=== PATIENT | male | born 1945 | race African-American/Black ===

== ENCOUNTER 2021-06-10 17:01 | Inpatient (IN) | payer MEDICARE, OTHER ==
[~2021-06-10] VITALS: Ht 180.3 cm; Wt 87.8 kg
[2021-06-10] MEDS: metroNIDAZOLE 500 MG TABLET PO SCH (00:08)
[2021-06-10] MEDS: HEPARIN 5,000 UNITS/ML, 1ML SQ SCH (00:08)
[2021-06-10] MEDS ORDERED: SODIUM CHLORIDE 0.9% 1,000ML IVBOLUS ONE (17:30)
[2021-06-10] MEDS ORDERED: SODIUM CHLORIDE FLUSH 10ML SYR IVF ONE (17:30)
[2021-06-10] MEDS ORDERED: LEVETIRACETAM 1,000 MG in SODIUM CHLORIDE 0.9% 100 ML IV ONE (17:30)
--- NOTE | 2021-06-10 17:34 | NUR ---
[place] someone there witnessed and called for reported tonic clonic like activity lasting approx 30 seconds. Evidence of oral trauma with dried blood on tongue. No evidence of incontinence. Pt presents oriented to self, states he in the hospital, doesn't know why, believes he's in [place] and did not answer what year. Placed on all monitors. C/o being thirsty and asking for water. Seizure pads in place.
--- NOTE | 2021-06-10 17:37 | NUR ---
Security at bedside to take wallet and contents for safe keeping.
--- NOTE | 2021-06-10 17:48 | NUR ---
1L of NS started by GILMA, finished. Per MD Sheehan, do not hang 2nd L
--- NOTE | 2021-06-10 17:56 | NUR ---
[facility] 318 after 1L NS
--- NOTE | 2021-06-10 18:48 | NUR ---
Pt sleeping, rousable to verbal stimuli. Oriented to person and place, doesn't know why he's in the hospital. Educated about seizure activity. MD Sheehan made aware of BP.
[2021-06-10 18:49] LABS: BASOPHILS % (AUTO) 0 % (0-1); EOSINOPHILS % (AUTO) 0 % (1-7); LYMPHOCYTES % (AUTO) 4 % (22-44); MEAN CORPUSCULAR HEMOGLOBIN 28.1 pg (27.5-34.5); MEAN CORPUSCULAR HGB CONC 33.4 g/dL (33.2-36.2); MEAN PLATELET VOLUME 8.1 fL (7.4-10.4); MONOCYTES % (AUTO) 4 % (2-9); NEUTROPHILS % (AUTO) 92 % (42-75); PLATELET COUNT 225 x10^3/uL (130-400); RED BLOOD COUNT 4.24 x10^6/uL (4.38-5.82); RED CELL DISTRIBUTION WIDTH 14.1 % (9.4-14.8)
[2021-06-10 19:03] LABS: ALBUMIN 3.3 g/dL (3.4-5.0); ANION GAP 10 mmol/L (5-15); CALCIUM 8.1 mg/dL (8.5-10.1); CHLORIDE 109 mmol/L (98-107)
[2021-06-10 19:07] LABS: ALANINE AMINOTRANSFERASE 25 U/L (12-78); ALKALINE PHOSPHATASE 90 U/L (45-117); BILIRUBIN,TOTAL 1.5 mg/dL (0.2-1.0); TOTAL PROTEIN 7.3 g/dL (6.4-8.2)
--- NOTE | 2021-06-10 19:10 | NUR ---
FIRST CONTACT WITH PATIENT. PATIENT A&O TO SELF ONLY. PROVIDED URINE SAMPLE. VSS. BED IN LOW POSITION. CALL RAVI IN REACH. WILL CONTINUE TO MONITOR.
--- NOTE | 2021-06-10 19:11 | NUR ---
Report to JOEY Rivas. Pt A&Ox1, states "nursery" when asked where he is. Provided urine in urinal that was given earlier.
[2021-06-10] MEDS ORDERED: LACTATED RINGERS 1,000 ML IV ONE (19:30)
[2021-06-10] MEDS ORDERED: CEFTRIAXONE 1,000 MG in DEXTROSE 5% 50 ML IVPB ONE (19:30)
[2021-06-10 19:36] LABS: AMPHETAMINE SCREEN, URINE Negative (Negative); BARBITURATE SCREEN, URINE Negative (Negative); BENZODIAZEPINE SCREEN, URINE Negative (Negative); CANNABINOID SCREEN, URINE Negative (Negative); COCAINE SCREEN, URINE Negative (Negative); METHADONE SCREEN, URINE Negative (Negative); OPIATE SCREEN, URINE Negative (Negative)
[2021-06-10 20:08] LABS: MICROSCOPIC INDICATED
--- NOTE | 2021-06-10 20:25 | NUR ---
PATIENT REMOVED 18G IV ON LEFT WRIST. PATIENT NEEDED TO WALKED TO THE SINK FOR "SOME WATER." PATIENT REMAINS A&0 TO SELF. UNABLE TO TELL ME WHERE HE LIVES/ WHERE HE IS AT. WILL CONTINUE TO MONITOR.
--- NOTE | 2021-06-10 21:01 | NUR ---
MD QUINN AWARE PATIENT REMAINS A&O TO SELF AND PATIENT IS UNSTEADY ON HIS FEET.
--- NOTE | 2021-06-10 21:20 | NUR ---
ATTEMPTED ROAD TEST WITH PATIENT. PATIENT UNSTEADY ON FEET. MD QUINN AWARE. PATIENT REMAINS A&O TO SELF.
--- NOTE | 2021-06-10 22:10 | NUR ---
RECIEVED A CALL FROM [facility] STATING THE PATIENT ABOVE HAS BEEN REPORTED MISSING. PD STATES GAVE THIS RN SONS INFORMATION. SON STATES HE TOOK A BUS FROM [facility] TO [place] BY HIMSELF AND SINCE THEN HAS BEEN "MISSING." SON MATTHEW STATES HE HAS ALL OF HIS INFORMATION AND CAN BE CONTACTED ANYTIME FOR MORE INFORMATION. ADVISED MATTHEW HE WILL BE ADMITTED TO THE HOSPITAL.
--- NOTE | 2021-06-10 22:12 | NUR ---
SON MATTHEW AZEVEDO [phone] HOME PHONE TO PATIENTS FAMILY.
--- NOTE | 2021-06-10 22:32 | NUR ---
UPDATED PATIENT THAT I SPOKE WITH SON FARHAN AND THAT HE WILL BE STAYING IN THE HOSPITAL. PATIENT STATES "FUCK YOU IM NOT STAYING HERE I HAVE MONEY ON IT." PATIENT REMAINS CONFUSED. WILL CONTINUE TO MONITOR.
--- NOTE | 2021-06-10 22:36 | NUR ---
[place] [employer] AT BEDSIDE.
--- NOTE | 2021-06-10 23:03 | NUR ---
PATIENT FOUND STANDING IN THE ROOM PEEING IN THE CORNER. PATIENT UNABLE TO BE REDIRECTED. PATIENT SCREAMING AT THIS RN TO LEAVE THE ROOM.
[2021-06-10] MEDS ORDERED: ONDANSETRON 2MG/ML, 2ML IVPush PRN (23:30)
[2021-06-10] MEDS ORDERED: ACETAMINOPHEN 325 MG TABLET PO PRN (23:30)
[2021-06-10] MEDS ORDERED: hydrALAzine 20 MG/ML, 1ML IVPush PRN (23:30)
[2021-06-10] MEDS ORDERED: DOCUSATE 100 MG CAPSULE PO PRN (23:30)
[2021-06-10] MEDS ORDERED: LABETALOL 5MG/ML, 20ML IVPush PRN (23:30)
[2021-06-10] MEDS ORDERED: POLYETHYLENE GLYCOL 17 GM PACKET PO PRN (23:30)
[2021-06-10] MEDS ORDERED: BISACODYL 10 MG SUPP PR PRN (23:30)
[2021-06-10] MEDS ORDERED: SODIUM CHLORIDE 0.9% 1,000 ML IV SCH (23:30)
[2021-06-10] MEDS ORDERED: ONDANSETRON ODT 4 MG PO PRN (23:30)
[2021-06-11] MEDS ORDERED: DEXTROSE 4 GM TAB.CHEW PO PRN
[2021-06-11] MEDS ORDERED: DEXTROSE 50%, 50ML SYRINGE IVPush PRN
[2021-06-11] MEDS ORDERED: GLUCAGON 1 MG IM PRN
--- NOTE | 2021-06-11 | NUR ---
throughput rn: hospital bed requested at this time.
[2021-06-11] MEDS ORDERED: HEPARIN 5,000 UNITS/ML, 1ML ONE (00:02)
[2021-06-11] MEDS ORDERED: INSULIN LISPRO SINGLE DOSE, ER SQ-INSULIN ONE (00:02)
[2021-06-11] MEDS ORDERED: metroNIDAZOLE 500 MG TABLET ONE (00:02)
[2021-06-11] MEDS: INSULIN LISPRO 100 UNITS/ML, PEN SQ-INSULIN SCH ×5 (00:08→20:33)
--- NOTE | 2021-06-11 00:29 | NUR ---
PATIENT PROVIDED WITH WATER REQUESTED.
--- NOTE | 2021-06-11 01:48 | NUR ---
LION (DAUGHTER) [phone]- SHE IS INTERNATIONAL; IN THE
--- NOTE | 2021-06-11 02:52 | NUR ---
PATIENT LYING IN STRETCHER WITH EYES CLOSED. NAD. REMAINS ON [employer]. CALL RAVI IN REACH. WILL CONTINUE TO MONITOR.
[2021-06-11 02:54] LABS: BASOPHILS % (AUTO) 0 % (0-1); EOSINOPHILS % (AUTO) 0 % (1-7); LYMPHOCYTES % (AUTO) 10 % (22-44); MEAN CORPUSCULAR HEMOGLOBIN 28.2 pg (27.5-34.5); MEAN CORPUSCULAR HGB CONC 33.8 g/dL (33.2-36.2); MEAN PLATELET VOLUME 7.4 fL (7.4-10.4); MONOCYTES % (AUTO) 9 % (2-9); NEUTROPHILS % (AUTO) 80 % (42-75); PLATELET COUNT 219 x10^3/uL (130-400); RED BLOOD COUNT 4.32 x10^6/uL (4.38-5.82); RED CELL DISTRIBUTION WIDTH 14.1 % (9.4-14.8)
[2021-06-11 02:58] LABS: ANION GAP 5 mmol/L (5-15); CALCIUM 8.3 mg/dL (8.5-10.1); CHLORIDE 112 mmol/L (98-107); CREATININE 1.37 mg/dL (0.7-1.3)
--- NOTE | 2021-06-11 04:20 | NUR ---
REPORT TO GIVEN TO JOEY Davila
[2021-06-11 04:52] VITALS: BP 153/72
[2021-06-11 06:28] VITALS: BP 148/68
[2021-06-11 07:50] VITALS: BP 137/90
[2021-06-11] MEDS: metroNIDAZOLE 500 MG TABLET PO SCH ×2 (08:12→20:32)
[2021-06-11] MEDS: LEVETIRACETAM 500 MG TABLET PO SCH ×2 (08:12→20:32)
[2021-06-11] MEDS: SODIUM CHLORIDE FLUSH 10ML SYR IVF SCH ×2 (08:14→20:32)
[2021-06-11] MEDS: HEPARIN 5,000 UNITS/ML, 1ML SQ SCH ×3 (08:14→23:39)
[2021-06-11] MEDS ORDERED: ACETAMINOPHEN 325 MG TABLET PO PRN (08:30)
[2021-06-11 13:05] VITALS: BP 155/69
[2021-06-11 18:48] VITALS: BP 154/78
[2021-06-11] MEDS ORDERED: CEFTRIAXONE 1,000 MG in DEXTROSE 5% 50 ML IVPB SCH (19:30)
[2021-06-11] MEDS: CEFTRIAXONE 2,000 MG in DEXTROSE 5% 50 ML IVPB SCH (21:20)
[2021-06-11] MEDS: SODIUM CHLORIDE 0.9% 1,000 ML IV SCH (23:27)
[2021-06-12 01:00] VITALS: BP 142/72
[2021-06-12] MEDS: SODIUM CHLORIDE 0.9% 1,000 ML IV SCH (06:51)
[2021-06-12 07:00] VITALS: BP 184/67
[2021-06-12 07:26] VITALS: BP 177/81
[2021-06-12] MEDS: INSULIN LISPRO 100 UNITS/ML, PEN SQ-INSULIN SCH ×4 (07:27→21:02)
[2021-06-12] MEDS ORDERED: AMLODIPINE 5 MG TABLET ONE (08:08)
[2021-06-12] MEDS ORDERED: LOSARTAN 50MG TABLET ONE (08:08)
[2021-06-12 08:14] VITALS: BP 166/70
[2021-06-12] MEDS: LEVETIRACETAM 500 MG TABLET PO SCH ×2 (08:16→21:01)
[2021-06-12] MEDS: HEPARIN 5,000 UNITS/ML, 1ML SQ SCH ×3 (08:16→23:49)
[2021-06-12] MEDS: AMLODIPINE 5 MG TABLET PO SCH ×2 (08:16→21:01)
[2021-06-12] MEDS: LOSARTAN 50MG TABLET PO SCH (08:16)
[2021-06-12] MEDS: metroNIDAZOLE 500 MG TABLET PO SCH ×2 (08:16→21:01)
[2021-06-12] MEDS: SODIUM CHLORIDE FLUSH 10ML SYR IVF SCH ×2 (08:17→21:01)
[2021-06-12 08:27] LABS: BASOPHILS % (AUTO) 0 % (0-1); EOSINOPHILS % (AUTO) 1 % (1-7); LYMPHOCYTES % (AUTO) 15 % (22-44); MEAN CORPUSCULAR HEMOGLOBIN 27.9 pg (27.5-34.5); MEAN CORPUSCULAR HGB CONC 33.1 g/dL (33.2-36.2); MONOCYTES % (AUTO) 7 % (2-9); NEUTROPHILS % (AUTO) 77 % (42-75); PLATELET COUNT 229 x10^3/uL (130-400); RED BLOOD COUNT 4.41 x10^6/uL (4.38-5.82); RED CELL DISTRIBUTION WIDTH 13.9 % (9.4-14.8)
[2021-06-12 08:35] LABS: ANION GAP 6 mmol/L (5-15); CALCIUM 8.3 mg/dL (8.5-10.1); CHLORIDE 109 mmol/L (98-107)
[2021-06-12 14:09] VITALS: BP 148/82
[2021-06-12 19:47] VITALS: BP 159/77
[2021-06-12] MEDS: CEFTRIAXONE 2,000 MG in DEXTROSE 5% 50 ML IVPB SCH (21:01)
[2021-06-13 00:28] VITALS: BP 142/80
[2021-06-13] MEDS: HEPARIN 5,000 UNITS/ML, 1ML SQ SCH ×3 (07:44→23:21)
[2021-06-13] MEDS: INSULIN LISPRO 100 UNITS/ML, PEN SQ-INSULIN SCH ×4 (07:45→20:59)
[2021-06-13] MEDS: AMLODIPINE 5 MG TABLET PO SCH ×2 (07:47→20:58)
[2021-06-13] MEDS: LEVETIRACETAM 500 MG TABLET PO SCH ×2 (07:47→20:58)
[2021-06-13] MEDS: LOSARTAN 50MG TABLET PO SCH (07:47)
[2021-06-13] MEDS: metFORMIN 850 MG TABLET PO SCH ×2 (07:53→16:24)
[2021-06-13] MEDS: SODIUM CHLORIDE 0.9% 1,000 ML IV SCH ×2 (08:00→23:22)
[2021-06-13 09:45] VITALS: BP 149/80
[2021-06-13] MEDS ORDERED: LEVE500T53 PO (10:44)
[2021-06-13] MEDS ORDERED: METF850T10 PO (10:44)
[2021-06-13] MEDS ORDERED: LOSA50TA2 PO ×2 (10:44)
[2021-06-13] MEDS ORDERED: AMLO-150 PO (10:44)
[2021-06-13] MEDS ORDERED: INSU100I11 SQ-INSULIN (10:44)
[2021-06-13] MEDS: SODIUM CHLORIDE FLUSH 10ML SYR IVF SCH ×2 (10:50→20:59)
[2021-06-13 15:15] VITALS: BP 150/78
[2021-06-13] MEDS: CEFTRIAXONE 2,000 MG in DEXTROSE 5% 50 ML IVPB SCH (19:38)
[2021-06-13 20:57] VITALS: BP 164/81
[2021-06-13] MEDS: GABAPENTIN 300 MG CAPSULE PO PRN (20:58)
[2021-06-14 02:55] VITALS: BP 144/75
[2021-06-14 05:04] LABS: BASOPHILS % (AUTO) 1 % (0-1); EOSINOPHILS % (AUTO) 2 % (1-7); LYMPHOCYTES % (AUTO) 24 % (22-44); MEAN CORPUSCULAR HEMOGLOBIN 28.3 pg (27.5-34.5); MEAN CORPUSCULAR HGB CONC 33.9 g/dL (33.2-36.2); MEAN PLATELET VOLUME 7.8 fL (7.4-10.4); MONOCYTES % (AUTO) 7 % (2-9); NEUTROPHILS % (AUTO) 67 % (42-75); PLATELET COUNT 222 x10^3/uL (130-400); RED BLOOD COUNT 4.33 x10^6/uL (4.38-5.82); RED CELL DISTRIBUTION WIDTH 13.7 % (9.4-14.8)
[2021-06-14 08:17] VITALS: BP 160/83
[2021-06-14] MEDS: SODIUM CHLORIDE FLUSH 10ML SYR IVF SCH ×2 (08:21→20:47)
[2021-06-14] MEDS: INSULIN LISPRO 100 UNITS/ML, PEN SQ-INSULIN SCH ×4 (08:21→20:53)
[2021-06-14] MEDS: HEPARIN 5,000 UNITS/ML, 1ML SQ SCH ×2 (08:21→16:15)
[2021-06-14] MEDS: LOSARTAN 50MG TABLET PO SCH (08:21)
[2021-06-14] MEDS: AMLODIPINE 5 MG TABLET PO SCH ×2 (08:21→20:47)
[2021-06-14] MEDS: LEVETIRACETAM 500 MG TABLET PO SCH ×2 (08:21→20:46)
[2021-06-14] MEDS: metFORMIN 850 MG TABLET PO SCH (08:21)
[2021-06-14] MEDS: metFORMIN 500 MG TABLET PO SCH (16:15)
[2021-06-14] MEDS: CEFDINIR 300 MG CAPSULE PO SCH (16:15)
[2021-06-14] MEDS: CARVEDILOL 3.125 MG TABLET PO SCH (16:15)
[2021-06-14 16:17] VITALS: BP 151/70
[2021-06-14] MEDS: SODIUM CHLORIDE 0.9% 1,000 ML IV SCH (16:17)
[2021-06-14 20:22] VITALS: BP 153/70
[2021-06-14] MEDS: GABAPENTIN 300 MG CAPSULE PO PRN (20:47)
[2021-06-15] MEDS: HEPARIN 5,000 UNITS/ML, 1ML SQ SCH ×3 (00:31→15:32)
[2021-06-15 00:55] VITALS: BP 128/70
[2021-06-15] MEDS: CEFDINIR 300 MG CAPSULE PO SCH ×2 (05:25→17:02)
[2021-06-15] MEDS: CARVEDILOL 3.125 MG TABLET PO SCH (05:25)
[2021-06-15 08:00] VITALS: BP 141/78
[2021-06-15] MEDS: LOSARTAN 50MG TABLET PO SCH (08:10)
[2021-06-15] MEDS: metFORMIN 500 MG TABLET PO SCH ×2 (08:10→17:02)
[2021-06-15] MEDS: LEVETIRACETAM 500 MG TABLET PO SCH ×2 (08:10→20:31)
[2021-06-15] MEDS: AMLODIPINE 5 MG TABLET PO SCH ×2 (08:10→20:31)
[2021-06-15] MEDS: INSULIN LISPRO 100 UNITS/ML, PEN SQ-INSULIN SCH ×4 (08:11→20:31)
[2021-06-15] MEDS: SODIUM CHLORIDE FLUSH 10ML SYR IVF SCH ×2 (08:14→20:31)
[2021-06-15 12:35] VITALS: BP 152/79
[2021-06-15] MEDS: CARVEDILOL 6.25 MG TABLET PO SCH (17:02)
[2021-06-15 19:14] VITALS: BP 152/88
[2021-06-16 00:46] VITALS: BP 147/79
[2021-06-16] MEDS: HEPARIN 5,000 UNITS/ML, 1ML SQ SCH ×4 (00:56→23:53)
[2021-06-16] MEDS: CEFDINIR 300 MG CAPSULE PO SCH ×2 (05:52→16:12)
[2021-06-16] MEDS: CARVEDILOL 6.25 MG TABLET PO SCH (05:52)
[2021-06-16 06:54] VITALS: BP 173/87
[2021-06-16] MEDS: INSULIN LISPRO 100 UNITS/ML, PEN SQ-INSULIN SCH ×4 (07:38→20:44)
[2021-06-16] MEDS: metFORMIN 500 MG TABLET PO SCH ×2 (07:39→16:12)
[2021-06-16] MEDS: LOSARTAN 50MG TABLET PO SCH (07:39)
[2021-06-16] MEDS: LEVETIRACETAM 500 MG TABLET PO SCH ×2 (07:39→20:45)
[2021-06-16] MEDS: SODIUM CHLORIDE FLUSH 10ML SYR IVF SCH ×2 (07:39→20:45)
[2021-06-16] MEDS: AMLODIPINE 5 MG TABLET PO SCH ×2 (07:39→20:45)
[2021-06-16 12:24] VITALS: BP 162/69
[2021-06-16 13:11] VITALS: BP 161/74
[2021-06-16] MEDS: CARVEDILOL 12.5 MG TABLET PO SCH (17:40)
[2021-06-16 20:16] VITALS: BP 172/76
[2021-06-17 01:41] VITALS: BP 159/86
[2021-06-17] MEDS ORDERED: LORazepam 2 MG/ML, 1ML IVPush PRN (03:00)
[2021-06-17] MEDS: CEFDINIR 300 MG CAPSULE PO SCH ×2 (06:04→16:08)
[2021-06-17] MEDS: CARVEDILOL 12.5 MG TABLET PO SCH ×2 (06:04→17:39)
[2021-06-17 07:13] VITALS: BP 154/83
[2021-06-17 07:39] LABS: BASOPHILS % (AUTO) 0 % (0-1); EOSINOPHILS % (AUTO) 2 % (1-7); LYMPHOCYTES % (AUTO) 25 % (22-44); MEAN CORPUSCULAR HEMOGLOBIN 28.1 pg (27.5-34.5); MEAN CORPUSCULAR HGB CONC 33.6 g/dL (33.2-36.2); MEAN PLATELET VOLUME 7.7 fL (7.4-10.4); MONOCYTES % (AUTO) 8 % (2-9); NEUTROPHILS % (AUTO) 64 % (42-75); PLATELET COUNT 248 x10^3/uL (130-400); RED BLOOD COUNT 4.47 x10^6/uL (4.38-5.82); RED CELL DISTRIBUTION WIDTH 13.7 % (9.4-14.8)
[2021-06-17 07:44] LABS: CHLORIDE 103 mmol/L (98-107)
[2021-06-17 07:51] LABS: ANION GAP 5 mmol/L (5-15); CALCIUM 9.4 mg/dL (8.5-10.1); CREATININE 1.03 mg/dL (0.7-1.3)
[2021-06-17] MEDS: HEPARIN 5,000 UNITS/ML, 1ML SQ SCH ×2 (08:04→16:09)
[2021-06-17] MEDS: INSULIN LISPRO 100 UNITS/ML, PEN SQ-INSULIN SCH ×3 (08:05→16:00)
[2021-06-17] MEDS: metFORMIN 500 MG TABLET PO SCH ×2 (08:05→16:08)
[2021-06-17] MEDS: AMLODIPINE 5 MG TABLET PO SCH (08:05)
[2021-06-17] MEDS: LEVETIRACETAM 500 MG TABLET PO SCH (08:05)
[2021-06-17] MEDS ORDERED: LOSARTAN 50MG TABLET PO SCH (09:00)
[2021-06-17] MEDS: SODIUM CHLORIDE FLUSH 10ML SYR IVF SCH (09:24)
[2021-06-17 12:25] VITALS: BP 145/70
[2021-06-17] MEDS ORDERED: LOSA50TA2 PO (13:18)
== END 2021-06-17 19:31 | disposition home or self-care (01) | DRG 871 ==
LOC: EDBD 17:01 → ED 21:58 → EDIP 23:01 → 4EST 06-11 04:34
PROVIDERS: ADMIT Family Medicine; ATTEND Internal Medicine
DX: A41.9 Sepsis, unspecified organism (principal); G93.41 Metabolic encephalopathy; N17.9 Acute kidney failure, unspecified; A59.9 Trichomoniasis, unspecified; E11.65 Type 2 diabetes mellitus with hyperglycemia; E83.51 Hypocalcemia; F10.10 Alcohol abuse, uncomplicated; F17.200 Nicotine dependence, unspecified, uncomplicated; G40.409 Other generalized epilepsy and epileptic syndromes, not intractable, without status epilepticus; I10 Essential (primary) hypertension; N30.90 Cystitis, unspecified without hematuria; Z66 Do not resuscitate; Z79.899 Other long term (current) drug therapy; Z79.891 Long term (current) use of opiate analgesic; Z79.4 Long term (current) use of insulin
CPT/HCPCS: 36415; 80048; 80053; 80307; 80320; 81001; 82330; 82962; 83036; 84443; 85025; 87040; 87086; 93005; 96365; 96367; G0378; J0696; J1644; J1953; G0480; J1815; J7030; J7120